=== PATIENT | male | born 1980 | race Two or more races ===

== ENCOUNTER 2018-05-06 08:07 | Observation (INO) | payer MEDICAID ==
[~2018-05-06] VITALS: Ht 604 cm; Wt 93.2 kg
[2018-05-06 08:26] LABS: BASOPHILS % (AUTO) 0.5 % (0-1); EOSINOPHILS # (AUTO) 0.1 X10'3 (0-0.9); EOSINOPHILS % (AUTO) 2.4 % (0-6); HEMATOCRIT 48.6 % (42.0-52.0); HEMOGLOBIN 17.1 g/dl (14.0-17.9); LYMPHOCYTES # (AUTO) 2.6 X10'3 (1.1-4.8); LYMPHOCYTES % (AUTO) 42.7 % (21-51); MEAN CORPUSCULAR HEMOGLOBIN 31.3 PG (27.0-31.0); MEAN CORPUSCULAR HGB CONC 35.3 % (33.0-36.5); MEAN CORPUSCULAR VOLUME 88.9 FL (78-98); MEAN PLATELET VOLUME 8.5 FL (7.4-10.4); MONOCYTES # (AUTO) 0.3 X10'3 (0-0.9); MONOCYTES % (AUTO) 4.5 % (2-12); NEUTROPHILS % (AUTO) 49.9 % (42-75); PLATELET COUNT 202 X10'3 (140-440); RED BLOOD COUNT 5.47 X10'6 (4.70-6.10); RED CELL DISTRIBUTION WIDTH 13.3 % (11.5-14.5)
[2018-05-06 08:34] LABS: CLARITY,URINE CLEAR (Clear); GLUCOSE, URINE NEGATIVE (Neg); KETONES,URINE TRACE mg/dl (Neg); LEUKOCYTE ESTERASE ,URINE NEGATIVE (Neg); NITRITES, URINE NEGATIVE (Neg); OCCULT BLOOD,URINE NEGATIVE (Neg); PH,URINE 5.5 (4.8-8.0); PROTEIN,URINE TRACE mg/dl (Neg); UROBILINOGEN,URINE 0.2 E.U/dL (0.2-1.0)
[2018-05-06 08:35] LABS: COLOR,URINE DARK YELLOW (Yellow); UA COLLECTION TYPE VOIDED
[2018-05-06 08:43] LABS: ALANINE AMINOTRANSFERASE 56 U/L (12-78); ALBUMIN 4.3 G/DL (3.4-5.0); ALKALINE PHOSPHATASE 106 IU/L (46-116); ANION GAP 9 (8-16); ASPARTATE AMINO TRANSFERASE 45 U/L (10-37); BILIRUBIN,TOTAL 1.1 MG/DL (0.1-1.0); BLOOD UREA NITROGEN 18 MG/DL (7-18); CALCIUM 9.3 MG/DL (8.5-10.1); CHLORIDE 102 MMOL/L (99-107); CREATININE 1.06 MG/DL (0.60-1.10); GLUCOSE 144 MG/DL (70-104); SODIUM 136 MMOL/L (135-145); TOTAL CARBON DIOXIDE 25.4 MMOL/L (24-32); TOTAL PROTEIN 8.5 G/DL (6.4-8.2); eGFR 79 ML/MIN
[2018-05-06 08:44] LABS: POTASSIUM 3.7 MMOL/L (3.5-5.1)
[2018-05-06 08:51] LABS: BACTERIA,URINE NONE SEEN /HPF (Neg); MUCUS STRANDS MANY /LPF (Neg); RBC,URINE NONE SEEN /HPF (0-2); SQUAMOUS EPITHELIAL CELL,UR FEW /LPF (FEW); WBC,URINE 0-4 /HPF (0-4)
[2018-05-06 10:03] LABS: LIPASE 4061 U/L (73-393)
[2018-05-06] MEDS ORDERED: morphine 4 MG/ML inj SYRINge IV PRN ×2 (10:15→10:40)
[2018-05-06] MEDS ORDERED: ondansetron/PF 4mg/2ml inj IV ONE (10:15)
[2018-05-06] MEDS ORDERED: normal saline 1000ML IV soln IVB ONE (10:15)
[2018-05-06] MEDS ORDERED: diphenhydrAMINE 25mg capsule PO PRN (10:40)
[2018-05-06] MEDS ORDERED: magnesium 1gm/100ml D5W IVPB 100 ML IV PRN (10:40)
[2018-05-06] MEDS ORDERED: magnesium hydroxide 30ml (MOM) UD suspension PO PRN (10:40)
[2018-05-06] MEDS ORDERED: mag hydrox/Alum hydrox/simeth 30ml oral suspension PO PRN (10:40)
[2018-05-06] MEDS ORDERED: potassium Cl 20 mEq SR tablet PO PRN ×2 (10:40)
[2018-05-06] MEDS ORDERED: HYDROcodone/acetaminophen 10/325mg tab PO PRN (10:40)
[2018-05-06] MEDS ORDERED: magnesium 4gm in 100ml NS 100 ML IV PRN (10:40)
[2018-05-06] MEDS ORDERED: ondansetron/PF 4mg/2ml inj IV PRN (10:40)
[2018-05-06] MEDS ORDERED: magnesium Cl slow-release 64mg tablet PO PRN (10:40)
[2018-05-06] MEDS ORDERED: potassium Cl 40MEQ/NS 500ml 500 ML IV PRN ×2 (10:40)
[2018-05-06] MEDS ORDERED: acetaminophen 325mg tablet PO PRN ×2 (10:40)
[2018-05-06] MEDS ORDERED: HYDROcodone/acetaminophen 5mg/325mg tablet PO PRN (10:40)
[2018-05-06 11:17] LABS: ETHANOL < 0.010 GM/DL (0.0-0.010)
[2018-05-06 12:01] LABS: URINE AMPHETAMINE SCREEN POSITIVE (Neg); URINE BARBITUATE SCREEN NEGATIVE (Neg); URINE BENZODIAZEPINES SCREEN NEGATIVE (Neg); URINE CANNABINOID SCREEN POSITIVE (Neg); URINE COCAINE SCREEN POSITIVE (Neg); URINE METHADONE SCREEN NEGATIVE (Neg); URINE OPIATE SCREEN POSITIVE (Neg); URINE PHENCYCLIDINE SCREEN NEGATIVE (Neg)
[2018-05-06] MEDS ORDERED: NO HOME MEDS (12:13)
[2018-05-06] MEDS: dextrose 5%-normal saline 1,000 ML IV SCH ×2 (12:18→20:07)
[2018-05-06 12:39] VITALS: BP 143/93
[2018-05-06] MEDS: K and/or MAG REPLACEMENT MC SCH (12:43)
[2018-05-06] MEDS: pantoprazole 40 MG vial IV SCH (13:58)
[2018-05-06] MEDS: morphine 4 MG/ML inj SYRINge IV PRN ×2 (16:37→21:09)
[2018-05-06 20:15] VITALS: BP 137/84
[2018-05-06 23:30] VITALS: BP 108/78
[2018-05-07] MEDS: dextrose 5%-normal saline 1,000 ML IV SCH ×2 (02:40→04:28)
[2018-05-07] MEDS: morphine 4 MG/ML inj SYRINge IV PRN (05:02)
[2018-05-07 05:26] LABS: BASOPHILS % (AUTO) 0.6 % (0-1); EOSINOPHILS # (AUTO) 0.1 X10'3 (0-0.9); EOSINOPHILS % (AUTO) 2.4 % (0-6); HEMATOCRIT 39.8 % (42.0-52.0); LYMPHOCYTES # (AUTO) 1.8 X10'3 (1.1-4.8); LYMPHOCYTES % (AUTO) 33.7 % (21-51); MEAN CORPUSCULAR HEMOGLOBIN 31.2 PG (27.0-31.0); MEAN CORPUSCULAR HGB CONC 35.2 % (33.0-36.5); MEAN CORPUSCULAR VOLUME 88.8 FL (78-98); MEAN PLATELET VOLUME 8.8 FL (7.4-10.4); MONOCYTES # (AUTO) 0.3 X10'3 (0-0.9); MONOCYTES % (AUTO) 4.9 % (2-12); NEUTROPHILS # (AUTO) 3.1 X10'3 (1.8-7.7); NEUTROPHILS % (AUTO) 58.4 % (42-75); PLATELET COUNT 157 X10'3 (140-440); RED BLOOD COUNT 4.49 X10'6 (4.70-6.10); RED CELL DISTRIBUTION WIDTH 13.1 % (11.5-14.5); WHITE BLOOD COUNT 5.3 X10'3 (4.5-11.0)
[2018-05-07 05:39] LABS: ALANINE AMINOTRANSFERASE 44 U/L (12-78); ALBUMIN 3.1 G/DL (3.4-5.0); ALKALINE PHOSPHATASE 73 IU/L (46-116); ANION GAP 3 (8-16); ASPARTATE AMINO TRANSFERASE 30 U/L (10-37); BLOOD UREA NITROGEN 14 MG/DL (7-18); BUN/CREATININE RATIO 15.2 (5.4-32.0); CALCIUM 8.5 MG/DL (8.5-10.1); CHLORIDE 107 MMOL/L (99-107); CREATININE 0.92 MG/DL (0.60-1.10); GLUCOSE 105 MG/DL (70-104); LIPASE 172 U/L (73-393); MAGNESIUM 1.8 MG/DL (1.5-2.4); PHOSPHORUS 2.9 MG/DL (2.3-4.5); POTASSIUM 3.7 MMOL/L (3.5-5.1); SODIUM 139 MMOL/L (135-145); TOTAL CARBON DIOXIDE 29.2 MMOL/L (24-32); TOTAL PROTEIN 6.3 G/DL (6.4-8.2); eGFR > 90 ML/MIN
[2018-05-07 07:09] VITALS: BP 128/84
[2018-05-07] MEDS: pantoprazole 40 MG vial IV SCH (07:56)
[2018-05-07] MEDS: K and/or MAG REPLACEMENT MC SCH (08:00)
[2018-05-07 11:25] VITALS: BP 118/75
[2018-05-07] MEDS ORDERED: THI100T PO (13:57)
[2018-05-07] MEDS ORDERED: FOLI1TAB16 PO (13:57)
[2018-05-07] MEDS ORDERED: OMEP20TA23 PO (13:57)
== END 2018-05-07 16:00 | disposition home or self-care (01) ==
LOC: ER 08:08 → ED HOLD 10:36 → SUR 3N 12:30
PROVIDERS: ADMIT Family Medicine; ATTEND Family Medicine
DX: K85.20 Alcohol induced acute pancreatitis without necrosis or infection (principal); F12.10 Cannabis abuse, uncomplicated; F14.10 Cocaine abuse, uncomplicated; F10.10 Alcohol abuse, uncomplicated; F15.10 Other stimulant abuse, uncomplicated; K21.9 Gastro-esophageal reflux disease without esophagitis; Z80.0 Family history of malignant neoplasm of digestive organs; Z83.3 Family history of diabetes mellitus
CPT/HCPCS: 36415; 76700; 80053; 80305; 80320; 81001; 83690; 83735; 84100; 85025; 85610; 87070; 93005; 96361; 96374; 96375; 96376; 99285; C9113; G0378; J2270; J2405; J7030; J7042